=== PATIENT | female | born 1960 | race Two or more races ===

== ENCOUNTER → 2022-02-23 | Emergency (ER) | payer OTHER ==
[~2022-02-23] VITALS: Ht 165.1 cm; Wt 81.6 kg
[~2022-02-23] MED LIST: GLIMEPIRIDE2 M1 PO; GLUMETZA500 MG PO; SYNTHROID125 MCG PO
== END | disposition home or self-care (01) ==
LOC: ER 10:20
DX: K52.9 Noninfective gastroenteritis and colitis, unspecified (principal); R10.9 Unspecified abdominal pain; E11.9 Type 2 diabetes mellitus without complications; E03.9 Hypothyroidism, unspecified; N20.1 Calculus of ureter; K76.0 Fatty (change of) liver, not elsewhere classified